=== PATIENT | female | born 1940 | race Caucasian/White ===

== ENCOUNTER 2017-12-22 14:28 | Emergency (ER) | payer MEDICARE, OTHER ==
[~2017-12-22] VITALS: Ht 160 cm; Wt 70.8 kg
[~2017-12-22 14:28] MED LIST: MECLIZINE 25 MG25 M1 PO
[2017-12-22] MEDS ORDERED: TRAZODONE HCL50 MG PO (14:54)
[2017-12-22] MEDS ORDERED: RESTORIL15 MG PO (14:54)
[2017-12-22] MEDS ORDERED: LEXAPRO 10 MG T10 M1 PO (14:55)
[2017-12-22 17:27] VITALS: BP 129/68
== END 2017-12-22 17:27 | disposition home or self-care (01) ==
LOC: M.ERS 14:28
DX: S89.91XA Unspecified injury of right lower leg, initial encounter (principal); J44.9 Chronic obstructive pulmonary disease, unspecified; K21.9 Gastro-esophageal reflux disease without esophagitis; Z85.118 Personal history of other malignant neoplasm of bronchus and lung; Z98.890 Other specified postprocedural states; Z90.710 Acquired absence of both cervix and uterus; Z88.1 Allergy status to other antibiotic agents; Z88.0 Allergy status to penicillin; Z91.041 Radiographic dye allergy status; Z88.8 Allergy status to other drugs, medicaments and biological substances; Z88.2 Allergy status to sulfonamides; X58.XXXA Exposure to other specified factors, initial encounter; Y93.89 Activity, other specified; Y92.89 Other specified places as the place of occurrence of the external cause; Y99.8 Other external cause status